=== PATIENT | female | born 1950 | race Caucasian/White ===

== ENCOUNTER 2017-05-16 16:13 | Inpatient (IN) | payer OTHER ==
[~2017-05-16] VITALS: Ht 170.2 cm; Wt 72.8 kg
[~2017-05-16 16:13] MED LIST: ADVAIR 250/501 DISK IH; ADVAIR HFA120 INHALA IH; ALBUTEROL2.5 MG/3 M IH; ALEVE220 MG PO; AMBIEN; AZITHROMYCIN250 MG1 PO; Advair 500/50 Diskus IH; Centrum Silver,Certa PO; DOXYCYCLINE HY100 MG PO; DUONEB 2.5-0.5 M3 ML IH; FOSAMAX70 MG PO; LEXAPRO20 MG PO; Levaquin PO; Lexapro PO; MUCINEX600 MG PO; ONE DAILY GUM200 MCG PO; OXYCODONE HCL10 MG PO; PREDNISONE10 MG PO; PREDNISONE50 MG PO; PROVENTIL,2.5 MG/0.5 PO; PROVENTIL,2.5 MG/3 M IH; PROVENTIL17 GM IH; Proventil,Ventolin H IH; SPIRIVA1 INHALATI IH; SYMBICORT60 INHALAT IH; Symbicort 80-4.5 mcg IH; Vitamin D PO; Xanax PO; predniSONE PO
[2017-05-16 16:53] LABS: BASOPHIL COUNT 0.1 K/uL (0-0.1); EOSINOPHIL (%) 3.8 % (0-5); EOSINOPHIL COUNT 0.3 K/uL (0-0.3); HEMATOCRIT 36.9 % (36.0-46.0); IMMATURE GRANULOCYTE (%) 0.3 % (0.0-0.7); INSTRUMENT ABS NEUTROPHIL CT 4.5 K/uL; LYMPHOCYTE COUNT 2.7 K/uL (1.0-2.8); MCH 28.5 PG (29.0-34.0); MCV 89.1 FL (83-99); MEAN PLAT.VOLUME 8.9 uM^3 (9.5-12.4); MONOCYTE (%) 5.5 % (3-12); MONOCYTE COUNT 0.4 K/uL (0-0.8); NEUTROPHIL (%) 56.1 % (45-76); NEUTROPHIL COUNT 4.5 K/uL (1.8-6.4); PLATELET COUNT 146 K/uL (156-360); RBC DIS.WIDTH-CV 13.7 % (11.8-14.6); RBC DIS.WIDTH-SD 44.8 % (39-53); RED BLOOD COUNT 4.14 M/uL (3.80-5.20)
[2017-05-16 17:01] LABS: PROTHROMBIN TIME 10.9 SEC (10.2-12.9)
[2017-05-16 17:04] LABS: PTT 25.8 SEC (25-37)
[2017-05-16 17:06] LABS: CHLORIDE 103 mEq/L (99-109); POTASSIUM 4.4 mEq/L (3.7-5.4); SODIUM 138 mEq/L (136-147)
[2017-05-16 17:07] LABS: MAGNESIUM 1.9 mg/dL (1.3-2.7)
[2017-05-16 17:08] LABS: GLUCOSE 125 mg/dL (70-99)
[2017-05-16 17:10] LABS: ANION GAP 7 MEQ/L (2-14)
[2017-05-16 17:12] LABS: GFR ESTIMATE (CALCULATED) 59 mL/min/
[2017-05-16 17:13] LABS: UREA NITROGEN (BUN) 12 mg/dL (9-23)
[2017-05-16 17:15] LABS: TROP-I INTERPRETATION NEGATIVE; TROPONIN-I 0.03 ng/mL (0.0-0.30)
[2017-05-16] MEDS ORDERED: SYMBICORT60 INHALAT IH (21:43)
[2017-05-16] MEDS ORDERED: TYLENOL EXTRA500 MG PO (21:44)
[2017-05-16 22:59] LABS: MAGNESIUM 1.7 mg/dL (1.3-2.7)
[2017-05-16 23:02] VITALS: BP 119/66
[2017-05-17 04:50] VITALS: BP 111/57
[2017-05-17 05:56] LABS: HEMATOCRIT 33.5 % (36.0-46.0); MCH 28.3 PG (29.0-34.0); MCHC 31.6 G/DL (30.0-36.0); MCV 89.6 FL (83-99); MEAN PLAT.VOLUME 9.8 uM^3 (9.5-12.4); PLATELET COUNT 150 K/uL (156-360); RBC DIS.WIDTH-CV 13.7 % (11.8-14.6); RBC DIS.WIDTH-SD 45.1 % (39-53); RED BLOOD COUNT 3.74 M/uL (3.80-5.20); WHITE BLOOD COUNT 6.2 K/uL (4.1-10.2)
[2017-05-17 06:13] LABS: ALKALINE PHOSPHATASE 61 IU/L (3-129); ANION GAP 6 MEQ/L (2-14); CHLORIDE 105 MEQ/L (99-109); GFR ESTIMATE (CALCULATED) > 59 mL/min/; GLUCOSE 169 mg/dL (70-99); POTASSIUM 4.2 MEQ/L (3.7-5.4); SAMPLE HEMOLYSIS CHECK 0; SAMPLE ICTERIC CHECK 0; SAMPLE LIPEMIA CHECK 0; SODIUM 139 MEQ/L (136-147); TOTAL BILIRUBIN 0.3 MG/DL (0.0-1.0); UREA NITROGEN (BUN) 12 mg/dL (9-23)
[2017-05-17 08:24] VITALS: BP 112/57
[2017-05-17 11:41] VITALS: BP 140/68
[2017-05-17 21:12] VITALS: BP 129/60
[2017-05-17 23:46] VITALS: BP 115/69
[2017-05-18 04:25] VITALS: BP 105/54
[2017-05-18 05:50] LABS: EOSINOPHIL (%) 0 % (0-5); HEMATOCRIT 32.2 % (36.0-46.0); IMMATURE GRANULOCYTE (%) 0.7 % (0.0-0.7); IMMATURE GRANULOCYTE COUNT 0.1 K/uL; INSTRUMENT ABS NEUTROPHIL CT 12.7 K/uL; LYMPHOCYTE COUNT 0.7 K/uL (1.0-2.8); MCH 28.9 PG (29.0-34.0); MCHC 32.6 G/DL (30.0-36.0); MCV 88.7 FL (83-99); MEAN PLAT.VOLUME 9.9 uM^3 (9.5-12.4); MONOCYTE (%) 2.4 % (3-12); MONOCYTE COUNT 0.3 K/uL (0-0.8); NEUTROPHIL COUNT 12.7 K/uL (1.8-6.4); PLATELET COUNT 153 K/uL (156-360); RBC DIS.WIDTH-CV 13.8 % (11.8-14.6); RED BLOOD COUNT 3.63 M/uL (3.80-5.20); WHITE BLOOD COUNT 13.8 K/uL (4.1-10.2)
[2017-05-18 06:09] LABS: ANION GAP 7 MEQ/L (2-14); CHLORIDE 106 MEQ/L (99-109); GFR ESTIMATE (CALCULATED) > 59 mL/min/; GLUCOSE 156 mg/dL (70-99); POTASSIUM 4.5 MEQ/L (3.7-5.4); SAMPLE HEMOLYSIS CHECK 0; SAMPLE ICTERIC CHECK 0; SAMPLE LIPEMIA CHECK 0; SODIUM 140 MEQ/L (136-147); UREA NITROGEN (BUN) 14 mg/dL (9-23)
[2017-05-18 07:34] VITALS: BP 125/58
[2017-05-18 11:39] VITALS: BP 153/69
[2017-05-18 16:23] VITALS: BP 138/63
[2017-05-18 19:30] VITALS: BP 157/74
[2017-05-18 23:43] VITALS: BP 173/83
[2017-05-19 00:15] VITALS: BP 160/80
[2017-05-19 04:34] VITALS: BP 145/70
[2017-05-19 07:48] VITALS: BP 138/71
[2017-05-19] MEDS ORDERED: ALBUTEROL2.5 MG/3 M IH (09:55)
[2017-05-19] MEDS ORDERED: PREDNISONE10 MG PO (09:55)
== END 2017-05-19 12:22 | disposition home or self-care (01) | DRG 191 ==
LOC: EME → EDBD 16:13 → EDOF 22:04 → 5WEST 22:04 → ENRESERV 22:07 → 5WEST 22:48 → CANRESERV 05-17 09:27 → ENRESERV 05-17 09:27 → 5WEST 05-19 12:22
PROVIDERS: Emergency Medicine; Internal Medicine
DX: J44.1 Chronic obstructive pulmonary disease with (acute) exacerbation (principal); T17.890A Other foreign object in other parts of respiratory tract causing asphyxiation, initial encounter; C85.90 Non-Hodgkin lymphoma, unspecified, unspecified site; J96.10 Chronic respiratory failure, unspecified whether with hypoxia or hypercapnia; J90 Pleural effusion, not elsewhere classified; F33.9 Major depressive disorder, recurrent, unspecified; K21.9 Gastro-esophageal reflux disease without esophagitis; I27.2 Other secondary pulmonary hypertension; J98.4 Other disorders of lung; G43.909 Migraine, unspecified, not intractable, without status migrainosus; F41.9 Anxiety disorder, unspecified; X58.XXXA Exposure to other specified factors, initial encounter; Z99.81 Dependence on supplemental oxygen; Z90.49 Acquired absence of other specified parts of digestive tract; Z88.5 Allergy status to narcotic agent; Z88.2 Allergy status to sulfonamides; Z87.891 Personal history of nicotine dependence; Z79.51 Long term (current) use of inhaled steroids; Z80.3 Family history of malignant neoplasm of breast; Z80.0 Family history of malignant neoplasm of digestive organs; Y92.9 Unspecified place or not applicable
CPT/HCPCS: 71010; 71275; 80048; 80053; 83735; 84100; 84484; 85025; 85027; 85610; 85730; 90686; 93005; 94640; 94640 76; 94644; 94799; 99202; 99281; 99285; G0378; J1100; J1644; J2060; J2405; J2930; J3010; J7030; J7644

== ENCOUNTER 2017-07-15 00:47 | Inpatient (IN) | payer OTHER ==
[~2017-07-15] VITALS: Ht 167.6 cm; Wt 70.9 kg
[~2017-07-15 00:47] MED LIST changes: +OXYCODONE HCL15 MG PO; +TYLENOL EXTRA500 MG PO
[2017-07-15 01:21] LABS: HEMATOCRIT 33.1 % (36.0-46.0); MCH 28.6 PG (29.0-34.0); MCHC 33.2 G/DL (30.0-36.0); MCV 86.2 FL (83-99); MEAN PLAT.VOLUME 8.5 uM^3 (9.5-12.4); PLATELET COUNT 162 K/uL (156-360); RBC DIS.WIDTH-CV 13.9 % (11.8-14.6); RBC DIS.WIDTH-SD 43.9 % (39-53); RED BLOOD COUNT 3.84 M/uL (3.80-5.20); WHITE BLOOD COUNT 9.4 K/uL (4.1-10.2)
[2017-07-15 01:34] LABS: CHLORIDE 99 mEq/L (99-109); POTASSIUM 3.7 mEq/L (3.7-5.4); SODIUM 130 mEq/L (136-147)
[2017-07-15 01:35] LABS: GLUCOSE 113 mg/dL (70-99)
[2017-07-15 01:39] LABS: ANION GAP 11 MEQ/L (2-14); GFR ESTIMATE (CALCULATED) 48 mL/min/
[2017-07-15 01:40] LABS: UREA NITROGEN (BUN) 15 mg/dL (9-23)
[2017-07-15 02:00] LABS: TROP-I INTERPRETATION NEGATIVE; TROPONIN-I < 0.01 ng/mL (0.0-0.30)
[2017-07-15 04:56] VITALS: BP 126/77
[2017-07-15 08:00] VITALS: BP 109/60
[2017-07-15] MEDS ORDERED: ALBUTEROL2.5 MG/3 M IH (11:52)
[2017-07-15 12:16] VITALS: BP 111/65
[2017-07-15 16:01] VITALS: BP 111/57
[2017-07-15 16:16] LABS: POINT-OF-CARE METER ID UU14314084
[2017-07-15 19:40] VITALS: BP 114/61
[2017-07-15 22:01] LABS: POINT-OF-CARE METER ID UU14314084
[2017-07-15 23:47] VITALS: BP 120/57
[2017-07-16 04:02] VITALS: BP 113/56
[2017-07-16 06:16] LABS: HEMATOCRIT 29.7 % (36.0-46.0); MCH 28.7 PG (29.0-34.0); MCHC 33.3 G/DL (30.0-36.0); MCV 86.1 FL (83-99); PLATELET COUNT 183 K/uL (156-360); RBC DIS.WIDTH-CV 14.3 % (11.8-14.6); RBC DIS.WIDTH-SD 45.1 % (39-53); RED BLOOD COUNT 3.45 M/uL (3.80-5.20); WHITE BLOOD COUNT 18.8 K/uL (4.1-10.2)
[2017-07-16 06:33] LABS: ANION GAP 6 MEQ/L (2-14); CHLORIDE 107 MEQ/L (99-109); GLUCOSE 156 mg/dL (70-99); SAMPLE HEMOLYSIS CHECK 0; SAMPLE ICTERIC CHECK 0; SAMPLE LIPEMIA CHECK 0; UREA NITROGEN (BUN) 13 mg/dL (9-23)
[2017-07-16 06:35] LABS: GFR ESTIMATE (CALCULATED) > 59 mL/min/; POTASSIUM 4.5 MEQ/L (3.7-5.4); SODIUM 138 MEQ/L (136-147)
[2017-07-16 07:25] VITALS: BP 115/63
[2017-07-16 12:13] LABS: POINT-OF-CARE METER ID UU14314084
[2017-07-16 15:35] VITALS: BP 138/75
[2017-07-16 18:26] LABS: POINT-OF-CARE METER ID UU14162508
[2017-07-16 20:00] VITALS: BP 120/75
[2017-07-17 00:35] VITALS: BP 148/85
[2017-07-17 07:18] VITALS: BP 116/56
[2017-07-17 15:17] VITALS: BP 144/78
[2017-07-18 00:27] VITALS: BP 145/76
[2017-07-18 08:04] VITALS: BP 126/62
[2017-07-18 16:59] VITALS: BP 144/75
[2017-07-18 23:25] VITALS: BP 135/79
[2017-07-19 08:30] VITALS: BP 130/76
[2017-07-19 16:27] VITALS: BP 137/77
[2017-07-19 23:15] VITALS: BP 156/78
[2017-07-20 06:37] LABS: HEMATOCRIT 33.3 % (36.0-46.0); MCH 28.3 PG (29.0-34.0); MCHC 32.4 G/DL (30.0-36.0); MCV 87.4 FL (83-99); MEAN PLAT.VOLUME 8.4 uM^3 (9.5-12.4); PLATELET COUNT 186 K/uL (156-360); RBC DIS.WIDTH-CV 13.9 % (11.8-14.6); RBC DIS.WIDTH-SD 44.6 % (39-53); RED BLOOD COUNT 3.81 M/uL (3.80-5.20); WHITE BLOOD COUNT 9.5 K/uL (4.1-10.2)
[2017-07-20 07:08] LABS: ANION GAP 6 MEQ/L (2-14); CHLORIDE 102 MEQ/L (99-109); GFR ESTIMATE (CALCULATED) > 59 mL/min/; GLUCOSE 125 mg/dL (70-99); POTASSIUM 4.5 MEQ/L (3.7-5.4); SAMPLE HEMOLYSIS CHECK 0; SAMPLE ICTERIC CHECK 0; SAMPLE LIPEMIA CHECK 0; SODIUM 140 MEQ/L (136-147); UREA NITROGEN (BUN) 16 mg/dL (9-23)
[2017-07-20 07:30] VITALS: BP 122/64
[2017-07-20] MEDS ORDERED: PREDNISONE20 MG PO (08:32)
[2017-07-20] MEDS ORDERED: Robitussin DM PO (08:32)
== END 2017-07-20 11:30 | disposition home or self-care (01) | DRG 191 ==
LOC: EME → EDBD 00:47 → EME 00:47 → EDOF 03:23 → 2EAST 03:23 → ENRESERV 03:24 → 2EAST 04:30
PROVIDERS: Hospitalist; Internal Medicine
DX: J44.1 Chronic obstructive pulmonary disease with (acute) exacerbation (principal); J20.9 Acute bronchitis, unspecified; I10 Essential (primary) hypertension; J44.0 Chronic obstructive pulmonary disease with (acute) lower respiratory infection; F32.9 Major depressive disorder, single episode, unspecified; J96.10 Chronic respiratory failure, unspecified whether with hypoxia or hypercapnia; D50.0 Iron deficiency anemia secondary to blood loss (chronic); E87.1 Hypo-osmolality and hyponatremia; R73.02 Impaired glucose tolerance (oral); I89.0 Lymphedema, not elsewhere classified; K21.9 Gastro-esophageal reflux disease without esophagitis; Z87.891 Personal history of nicotine dependence; Z85.72 Personal history of non-Hodgkin lymphomas; Z90.49 Acquired absence of other specified parts of digestive tract; Z99.81 Dependence on supplemental oxygen; Z79.51 Long term (current) use of inhaled steroids; Z79.899 Other long term (current) drug therapy
CPT/HCPCS: 71020; 80048; 82948; 84484; 85027; 93005; 94640; 94640 76; 94760; 94799; 99202; 99281; 99285; J1100; J1650; J1815; J2405; J2920; J2930; J7040; J7512; J7644

== ENCOUNTER 2017-07-26 21:25 | Inpatient (IN) | payer OTHER ==
[~2017-07-26] VITALS: Ht 170.2 cm; Wt 76.5 kg
[~2017-07-26 21:25] MED LIST changes: +PREDNISONE20 MG PO; +Robitussin DM PO
[2017-07-26] MEDS ORDERED: SYMBICORT60 INHALAT IH (21:48)
[2017-07-26] MEDS ORDERED: LEXAPRO20 MG PO (21:48)
[2017-07-26] MEDS ORDERED: ROXICODONE15 MG PO (21:48)
[2017-07-26] MEDS ORDERED: TYLENOL EXTRA500 MG PO (21:49)
[2017-07-26] MEDS ORDERED: ROBITUSSIN100 MG/5 M PO (21:49)
[2017-07-26] MEDS ORDERED: PROVENTIL,2.5 MG/3 M IH (21:49)
[2017-07-26] MEDS ORDERED: DELTASONE20 M1 PO (21:50)
[2017-07-26 21:57] LABS: HEMATOCRIT 34.6 % (36.0-46.0); MCH 29.1 PG (29.0-34.0); MCHC 32.1 G/DL (30.0-36.0); MCV 90.8 FL (83-99); MEAN PLAT.VOLUME 8.2 uM^3 (9.5-12.4); PLATELET COUNT 189 K/uL (156-360); RBC DIS.WIDTH-CV 14.6 % (11.8-14.6); RBC DIS.WIDTH-SD 48.9 % (39-53); RED BLOOD COUNT 3.81 M/uL (3.80-5.20); WHITE BLOOD COUNT 18.8 K/uL (4.1-10.2)
[2017-07-26 22:06] LABS: CHLORIDE 105 mEq/L (99-109); POTASSIUM 4.9 mEq/L (3.7-5.4); SODIUM 139 mEq/L (136-147)
[2017-07-26 22:08] LABS: GLUCOSE 179 mg/dL (70-99)
[2017-07-26 22:09] LABS: ANION GAP 13 MEQ/L (2-14)
[2017-07-26 22:12] LABS: GFR ESTIMATE (CALCULATED) 59 mL/min/
[2017-07-26 22:13] LABS: UREA NITROGEN (BUN) 22 mg/dL (9-23)
[2017-07-26 22:14] LABS: BASE EXCESS -0.5 mEq/L (-3 to +3); BICARBONATE 25.8 mEq/L (22-26); CARBOXY HGB 4.8 % (0-5); METHEMOGLOBIN 0.1 % (0-1.5); PCO2 49 mm Hg (35-45); PO2 157 mm Hg (80-100); pH 7.33 (7.35-7.45)
[2017-07-26 22:15] LABS: COMMENTS - BLOOD GASES C+; DEVICE VENT; FI02 40 %; MODE NIV; PEEP 5 CM/H20; PRES. SUPPORT 10 CM/H2O; SITE RR; TOTAL RESP RATE 24 resp/min
[2017-07-26 22:20] LABS: TROP-I INTERPRETATION NEGATIVE; TROPONIN-I 0.02 ng/mL (0.0-0.30)
[2017-07-27 03:55] VITALS: BP 151/79
[2017-07-27 06:06] LABS: HEMATOCRIT 33.3 % (36.0-46.0); MCH 29.2 PG (29.0-34.0); MCHC 31.8 G/DL (30.0-36.0); MCV 91.7 FL (83-99); MEAN PLAT.VOLUME 8.6 uM^3 (9.5-12.4); PLATELET COUNT 169 K/uL (156-360); RBC DIS.WIDTH-CV 14.6 % (11.8-14.6); RBC DIS.WIDTH-SD 49.4 % (39-53); RED BLOOD COUNT 3.63 M/uL (3.80-5.20); WHITE BLOOD COUNT 14.6 K/uL (4.1-10.2)
[2017-07-27 06:29] LABS: ANION GAP 4 MEQ/L (2-14); CHLORIDE 105 MEQ/L (99-109); GFR ESTIMATE (CALCULATED) > 59 mL/min/; GLUCOSE 141 mg/dL (70-99); POTASSIUM 5.1 MEQ/L (3.7-5.4); SAMPLE HEMOLYSIS CHECK 0; SAMPLE ICTERIC CHECK 0; SAMPLE LIPEMIA CHECK 0; SODIUM 139 MEQ/L (136-147); UREA NITROGEN (BUN) 19 mg/dL (9-23)
[2017-07-27 06:45] VITALS: BP 168/85
[2017-07-27 11:36] VITALS: BP 158/72
[2017-07-27 15:00] VITALS: BP 133/82
[2017-07-27 15:29] LABS: ADD MIUA? NO; BILIRUBIN NEGATIVE; BLOOD NEGATIVE; COLOR STRAW ((YELLOW)); GLUCOSE (STRIP) NEGATIVE; KETONES NEGATIVE; LEUKOCYTES NEGATIVE; NITRITE NEGATIVE; PROTEIN (STRIP) NEGATIVE; SPECIFIC GRAVITY 1.014 (1.000-1.030); UROBILINOGEN 0.2 MG/DL (0.2-1.0)
[2017-07-27 19:25] VITALS: BP 147/84
[2017-07-27 23:07] VITALS: BP 126/67
[2017-07-28 03:30] VITALS: BP 126/67
[2017-07-28 07:25] VITALS: BP 144/76
[2017-07-28 09:01] LABS: HEMATOCRIT 36.4 % (36.0-46.0); MCH 28.6 PG (29.0-34.0); MCHC 31.9 G/DL (30.0-36.0); MCV 89.7 FL (83-99); MEAN PLAT.VOLUME 8.4 uM^3 (9.5-12.4); PLATELET COUNT 202 K/uL (156-360); RBC DIS.WIDTH-CV 14.5 % (11.8-14.6); RBC DIS.WIDTH-SD 47.8 % (39-53); RED BLOOD COUNT 4.06 M/uL (3.80-5.20); WHITE BLOOD COUNT 17.5 K/uL (4.1-10.2)
[2017-07-28 09:35] LABS: ANION GAP 7 MEQ/L (2-14); CHLORIDE 104 MEQ/L (99-109); GFR ESTIMATE (CALCULATED) > 59 mL/min/; GLUCOSE 112 mg/dL (70-99); SAMPLE HEMOLYSIS CHECK 0; SAMPLE ICTERIC CHECK 0; SAMPLE LIPEMIA CHECK 0; SODIUM 141 MEQ/L (136-147); UREA NITROGEN (BUN) 23 mg/dL (9-23)
[2017-07-28 09:36] LABS: POTASSIUM 3.9 MEQ/L (3.7-5.4)
[2017-07-28 11:49] VITALS: BP 165/79
[2017-07-28 16:04] VITALS: BP 156/81
[2017-07-28 19:38] VITALS: BP 143/75
[2017-07-28 23:30] VITALS: BP 134/75
[2017-07-29 07:46] VITALS: BP 166/96
[2017-07-29 10:52] LABS: HEMATOCRIT 37.1 % (36.0-46.0); MCH 28.8 PG (29.0-34.0); MCHC 31.8 G/DL (30.0-36.0); MCV 90.5 FL (83-99); MEAN PLAT.VOLUME 8.3 uM^3 (9.5-12.4); PLATELET COUNT 188 K/uL (156-360); RBC DIS.WIDTH-CV 14.5 % (11.8-14.6); WHITE BLOOD COUNT 16.4 K/uL (4.1-10.2)
[2017-07-29 16:14] VITALS: BP 149/81
[2017-07-29 22:45] VITALS: BP 141/72
[2017-07-30 06:40] VITALS: BP 156/75
[2017-07-30 09:43] LABS: HEMATOCRIT 37.2 % (36.0-46.0); MCH 28.4 PG (29.0-34.0); MCHC 31.5 G/DL (30.0-36.0); MCV 90.3 FL (83-99); MEAN PLAT.VOLUME 8.6 uM^3 (9.5-12.4); PLATELET COUNT 183 K/uL (156-360); RBC DIS.WIDTH-CV 14.5 % (11.8-14.6); RBC DIS.WIDTH-SD 47.8 % (39-53); RED BLOOD COUNT 4.12 M/uL (3.80-5.20); WHITE BLOOD COUNT 16.8 K/uL (4.1-10.2)
[2017-07-30 15:35] VITALS: BP 153/83
[2017-07-31] VITALS: BP 132/79
[2017-07-31 06:55] VITALS: BP 174/82
[2017-07-31 09:37] LABS: HEMATOCRIT 34.3 % (36.0-46.0); MCH 29.2 PG (29.0-34.0); MCHC 31.8 G/DL (30.0-36.0); MEAN PLAT.VOLUME 8.5 uM^3 (9.5-12.4); PLATELET COUNT 138 K/uL (156-360); RBC DIS.WIDTH-CV 14.7 % (11.8-14.6); RBC DIS.WIDTH-SD 49.2 % (39-53); RED BLOOD COUNT 3.73 M/uL (3.80-5.20); WHITE BLOOD COUNT 13.7 K/uL (4.1-10.2)
[2017-07-31 09:58] LABS: ANION GAP 7 MEQ/L (2-14); CHLORIDE 103 MEQ/L (99-109); GFR ESTIMATE (CALCULATED) > 59 mL/min/; GLUCOSE 106 mg/dL (70-99); POTASSIUM 4.2 MEQ/L (3.7-5.4); SAMPLE HEMOLYSIS CHECK 0; SAMPLE ICTERIC CHECK 0; SAMPLE LIPEMIA CHECK 0; SODIUM 141 MEQ/L (136-147); UREA NITROGEN (BUN) 18 mg/dL (9-23)
[2017-07-31 11:18] LABS: ALKALINE PHOSPHATASE 55 IU/L (3-129); DIRECT BILIRUBIN 0.1 mg/dL (0.0-0.3); TOTAL BILIRUBIN 0.3 MG/DL (0.0-1.0)
[2017-07-31 12:19] LABS: LIPASE 16 U/L (1.0-51.0)
[2017-07-31 15:14] VITALS: BP 188/91
[2017-07-31 23:30] VITALS: BP 154/77
[2017-08-01 05:48] LABS: EOSINOPHIL (%) 0 % (0-5); HEMATOCRIT 31.6 % (36.0-46.0); IMMATURE GRANULOCYTE (%) 0.9 % (0.0-0.7); IMMATURE GRANULOCYTE COUNT 0.1 K/uL; INSTRUMENT ABS NEUTROPHIL CT 12.2 K/uL; LYMPHOCYTE COUNT 0.5 K/uL (1.0-2.8); MCH 29.5 PG (29.0-34.0); MCHC 32.3 G/DL (30.0-36.0); MCV 91.3 FL (83-99); MEAN PLAT.VOLUME 9.2 uM^3 (9.5-12.4); MONOCYTE (%) 3.2 % (3-12); MONOCYTE COUNT 0.4 K/uL (0-0.8); NEUTROPHIL (%) 91.9 % (45-76); NEUTROPHIL COUNT 12.2 K/uL (1.8-6.4); PLATELET COUNT 119 K/uL (156-360); RBC DIS.WIDTH-CV 14.7 % (11.8-14.6); RBC DIS.WIDTH-SD 49.3 % (39-53); RED BLOOD COUNT 3.46 M/uL (3.80-5.20); WHITE BLOOD COUNT 13.2 K/uL (4.1-10.2)
[2017-08-01 07:17] VITALS: BP 171/83
[2017-08-01 14:44] LABS: TROP-I INTERPRETATION NEGATIVE; TROPONIN-I 0.02 ng/mL (0.0-0.30)
[2017-08-01 14:45] VITALS: BP 172/84
[2017-08-01 22:34] VITALS: BP 169/88
[2017-08-02 00:33] VITALS: BP 157/76
[2017-08-02 04:05] VITALS: BP 155/76
[2017-08-02 06:31] LABS: MCH 29.8 PG (29.0-34.0); MCHC 32.6 G/DL (30.0-36.0); MCV 91.4 FL (83-99); MEAN PLAT.VOLUME 9.2 uM^3 (9.5-12.4); PLATELET COUNT 136 K/uL (156-360); RBC DIS.WIDTH-CV 14.8 % (11.8-14.6); RBC DIS.WIDTH-SD 49.3 % (39-53); RED BLOOD COUNT 3.72 M/uL (3.80-5.20); WHITE BLOOD COUNT 14.2 K/uL (4.1-10.2)
[2017-08-02 07:31] VITALS: BP 168/81
[2017-08-02 11:54] VITALS: BP 170/85
[2017-08-02 15:40] LABS: POINT-OF-CARE METER ID UU13113774
[2017-08-02 20:37] VITALS: BP 172/79
[2017-08-02 23:41] VITALS: BP 169/78
[2017-08-03 07:54] VITALS: BP 170/86
[2017-08-03 11:39] VITALS: BP 172/84
[2017-08-03 15:50] VITALS: BP 177/87
[2017-08-03 19:32] VITALS: BP 154/83
[2017-08-03 22:20] VITALS: BP 140/65
[2017-08-04 03:40] VITALS: BP 144/69
[2017-08-04 05:49] LABS: HEMATOCRIT 34.7 % (36.0-46.0); MCH 28.8 PG (29.0-34.0); MCHC 31.4 G/DL (30.0-36.0); MCV 91.8 FL (83-99); MEAN PLAT.VOLUME 8.8 uM^3 (9.5-12.4); PLATELET COUNT 131 K/uL (156-360); RBC DIS.WIDTH-SD 50.3 % (39-53); RED BLOOD COUNT 3.78 M/uL (3.80-5.20); WHITE BLOOD COUNT 11.7 K/uL (4.1-10.2)
[2017-08-04 06:31] LABS: ANION GAP 6 MEQ/L (2-14); CHLORIDE 102 MEQ/L (99-109); GFR ESTIMATE (CALCULATED) 59 mL/min/; GLUCOSE 112 mg/dL (70-99); POTASSIUM 4.4 MEQ/L (3.7-5.4); SAMPLE HEMOLYSIS CHECK 0; SAMPLE ICTERIC CHECK 0; SAMPLE LIPEMIA CHECK 0; SODIUM 139 MEQ/L (136-147); UREA NITROGEN (BUN) 22 mg/dL (9-23)
[2017-08-04 07:39] VITALS: BP 156/76
[2017-08-04 11:35] VITALS: BP 162/88
[2017-08-04 16:35] VITALS: BP 169/79
[2017-08-04 20:05] VITALS: BP 140/81
[2017-08-05 06:16] LABS: HEMATOCRIT 32.5 % (36.0-46.0); MCHC 31.4 G/DL (30.0-36.0); MCV 92.3 FL (83-99); MEAN PLAT.VOLUME 8.9 uM^3 (9.5-12.4); PLATELET COUNT 124 K/uL (156-360); RBC DIS.WIDTH-CV 15.1 % (11.8-14.6); RBC DIS.WIDTH-SD 51.4 % (39-53); RED BLOOD COUNT 3.52 M/uL (3.80-5.20); WHITE BLOOD COUNT 10.8 K/uL (4.1-10.2)
[2017-08-05 07:10] VITALS: BP 167/87
[2017-08-05 12:05] LABS: TROP-I INTERPRETATION NEGATIVE; TROPONIN-I 0.03 ng/mL (0.0-0.30)
[2017-08-05 16:16] VITALS: BP 143/71
[2017-08-06 00:29] VITALS: BP 126/62
[2017-08-06 08:06] VITALS: BP 148/78
[2017-08-06] MEDS ORDERED: FLONASE16 G1 BOTH NARES (11:40)
[2017-08-06] MEDS ORDERED: METOPROLOL SUCC25 MG PO (11:40)
[2017-08-06] MEDS ORDERED: SPIRIVA1 INHALATI IH (11:40)
[2017-08-06] MEDS ORDERED: PREDNISONE10 MG PO ×2 (11:40→11:55)
[2017-08-06] MEDS ORDERED: SYMBICORT60 INHALAT IH (11:40)
[2017-08-06] MEDS ORDERED: AMLODIPINE BESYL5 MG PO (11:40)
[2017-08-06] MEDS ORDERED: LEXAPRO20 MG PO (11:40)
[2017-08-06] MEDS ORDERED: PROTONIX40 MG PO (11:40)
[2017-08-06] MEDS ORDERED: FLUCONAZOLE100 MG PO (11:40)
[2017-08-06] MEDS ORDERED: DOCUSATE SODIU100 MG PO (11:40)
[2017-08-06] MEDS ORDERED: MYCOSTATIN 100,60 ML PO (11:40)
[2017-08-06] MEDS ORDERED: BENZONATATE100 MG PO (11:40)
[2017-08-06] MEDS ORDERED: XOPENEX1.25 MG/3 IH (11:40)
[2017-08-06] MEDS ORDERED: ROXICODONE15 MG PO (11:40)
[2017-08-06] MEDS ORDERED: AZITHROMYCIN500 M1 PO (11:40)
[2017-08-06] MEDS ORDERED: DUONEB 2.5-0.5 M3 ML AEROSOL (16:05)
[2017-08-06] MEDS ORDERED: PROVENTIL,2.5 MG/3 M IH (16:05)
== END 2017-08-06 14:12 | disposition home health service (06) | DRG 190 ==
LOC: EME → EDBD 21:25 → EME 21:25 → 5EAST 07-27 01:52 → EDOF 07-27 01:52 → ENRESERV 07-27 01:53 → 5EAST 07-27 03:36
PROVIDERS: Emergency Medicine; Hospitalist; Internal Medicine; Internal Medicine Gastroenterology
PROC: 5A09357 Assistance with Respiratory Ventilation, Less than 24 Consecutive Hours, Continuous Positive Airway Pressure (ICD-10-PCS; principal; 2017-07-26)
PROC: 0DB68ZX Excision of Stomach, Via Natural or Artificial Opening Endoscopic, Diagnostic (ICD-10-PCS; 2017-08-02)
PROC: 0DJ08ZZ Inspection of Upper Intestinal Tract, Via Natural or Artificial Opening Endoscopic (ICD-10-PCS; 2017-08-02)
PROC: 0DB98ZX Excision of Duodenum, Via Natural or Artificial Opening Endoscopic, Diagnostic (ICD-10-PCS; 2017-08-02)
DX: J44.1 Chronic obstructive pulmonary disease with (acute) exacerbation (principal); J96.21 Acute and chronic respiratory failure with hypoxia; Z99.81 Dependence on supplemental oxygen; C85.93 Non-Hodgkin lymphoma, unspecified, intra-abdominal lymph nodes; K31.84 Gastroparesis; B37.81 Candidal esophagitis; B37.0 Candidal stomatitis; K26.9 Duodenal ulcer, unspecified as acute or chronic, without hemorrhage or perforation; K25.9 Gastric ulcer, unspecified as acute or chronic, without hemorrhage or perforation; K29.70 Gastritis, unspecified, without bleeding; K22.10 Ulcer of esophagus without bleeding; K21.0 Gastro-esophageal reflux disease with esophagitis; J20.9 Acute bronchitis, unspecified; J44.0 Chronic obstructive pulmonary disease with (acute) lower respiratory infection; J01.00 Acute maxillary sinusitis, unspecified; D64.9 Anemia, unspecified; F32.9 Major depressive disorder, single episode, unspecified; F41.9 Anxiety disorder, unspecified; G43.909 Migraine, unspecified, not intractable, without status migrainosus; R00.0 Tachycardia, unspecified; I10 Essential (primary) hypertension; E78.5 Hyperlipidemia, unspecified; G89.29 Other chronic pain; K59.00 Constipation, unspecified; Z87.891 Personal history of nicotine dependence; Z79.1 Long term (current) use of non-steroidal anti-inflammatories (NSAID); Z92.21 Personal history of antineoplastic chemotherapy; Z80.3 Family history of malignant neoplasm of breast; Z80.0 Family history of malignant neoplasm of digestive organs
CPT/HCPCS: 36600; 70220; 71010; 71020; 71275; 74177; 76700; 80048; 80076; 81003; 82803; 82948; 83690; 84484; 85025; 85027; 87040; 87070; 87205; 88305; 88342 TC; 93005; 93971; 94002; 94640; 94640 76; 94760; 94799; 97530 GO; 97530 GP; 99202; 99281; 99285; C9113; J1100; J1644; J2060; J2405; J2930; J7512; J7644

== ENCOUNTER 2018-01-18 16:54 | Inpatient (IN) | payer OTHER ==
[~2018-01-18] VITALS: Ht 167.6 cm; Wt 73.0 kg
[~2018-01-18 16:54] MED LIST changes: +AMLODIPINE BESYL5 MG PO; +AZITHROMYCIN500 M1 PO; +BENZONATATE100 MG PO; +DELTASONE20 M1 PO; +DOCUSATE SODIU100 MG PO; +DUONEB 2.5-0.5 M3 ML AEROSOL; +FLONASE16 G1 BOTH NARES; +FLUCONAZOLE100 MG PO; +METOPROLOL SUCC25 MG PO; +MYCOSTATIN 100,60 ML PO; +PROTONIX40 MG PO; +ROBITUSSIN100 MG/5 M PO; +ROXICODONE15 MG PO; +XOPENEX1.25 MG/3 IH
[2018-01-18 17:47] LABS: BASOPHIL COUNT 0.1 K/uL (0-0.1); EOSINOPHIL (%) 6.6 % (0-5); EOSINOPHIL COUNT 0.8 K/uL (0-0.3); HEMATOCRIT 29.7 % (36.0-46.0); HEMOGLOBIN 9.6 G/DL (11.9-15.5); IMMATURE GRANULOCYTE (%) 0.6 % (0.0-0.7); LYMPHOCYTE (%) 18.2 % (15-42); LYMPHOCYTE COUNT 2.1 K/uL (1.0-2.8); MCH 26.9 PG (29.0-34.0); MCHC 32.3 G/DL (30.0-36.0); MCV 83.2 FL (83-99); MONOCYTE (%) 5.9 % (3-12); MONOCYTE COUNT 0.7 K/uL (0-0.8); NEUTROPHIL (%) 67.7 % (45-76); NEUTROPHIL COUNT 7.8 K/uL (1.8-6.4); PLATELET COUNT 317 K/uL (156-360); RBC DIS.WIDTH-CV 13.2 % (11.8-14.6); RBC DIS.WIDTH-SD 39.7 % (39-53); RED BLOOD COUNT 3.57 M/uL (3.80-5.20); WHITE BLOOD COUNT 11.5 K/uL (4.1-10.2)
[2018-01-18 17:53] LABS: INTER. NORMALIZED RATIO 1.1
[2018-01-18 17:55] LABS: AMYLASE 37 IU/L (1-118); CHLORIDE 106 mEq/L (99-109); POTASSIUM 4.3 mEq/L (3.7-5.4); SODIUM 138 mEq/L (136-147)
[2018-01-18 17:56] LABS: GLUCOSE 103 mg/dL (70-99); PTT 27.5 SEC (25-37)
[2018-01-18 18:00] LABS: CREATININE 0.9 mg/dL (0.6-1.3); GFR ESTIMATE (CALCULATED) > 59 mL/min/
[2018-01-18 18:01] LABS: UREA NITROGEN (BUN) 7 mg/dL (9-23)
[2018-01-18 18:03] LABS: LIPASE 3 U/L (1.0-51.0)
[2018-01-18 18:07] LABS: TROP-I INTERPRETATION NEGATIVE; TROPONIN-I < 0.01 ng/mL (0.0-0.30)
[2018-01-18] MEDS ORDERED: NORVASC5 MG PO (19:59)
[2018-01-18] MEDS ORDERED: LOPRESSOR25 MG PO (19:59)
[2018-01-18] MEDS ORDERED: DUONEB 2.5-0.5 M3 ML AEROSOL (19:59)
[2018-01-18] MEDS ORDERED: OXYCODONE HCL10 MG PO (20:00)
[2018-01-18 20:38] LABS: APPEARANCE CLEAR ((CLEAR)); BILIRUBIN NEGATIVE; BLOOD NEGATIVE; COLOR STRAW ((YELLOW)); GLUCOSE (STRIP) NEGATIVE; KETONES NEGATIVE; LEUKOCYTES NEGATIVE; NITRITE NEGATIVE; PROTEIN (STRIP) NEGATIVE; SPECIFIC GRAVITY 1.018 (1.000-1.030); UCUL ADDED? NO; UROBILINOGEN 0.2 MG/DL (0.2-1.0)
[2018-01-18 22:24] LABS: ALBUMIN 3.6 g/dL (3.2-4.8)
[2018-01-18 22:26] VITALS: BP 134/62
[2018-01-18 22:27] LABS: TOTAL PROTEIN 5.9 g/dL (6.4-8.3)
[2018-01-18 22:29] LABS: TOTAL BILIRUBIN 0.1 mg/dL (0.0-1.0)
[2018-01-18 22:30] LABS: ALKALINE PHOSPHATASE 85 IU/L (3-129)
[2018-01-18 22:32] LABS: AST (GOT) 11 IU/L (2-34); DIRECT BILIRUBIN 0.1 mg/dL (0.0-0.3)
[2018-01-18 22:33] LABS: ALT (GPT) 6 IU/L (3-49)
[2018-01-19 01:36] LABS: HDL CHOLESTEROL 35 MG/DL (Desirable>=50); LDL CHOLESTEROL 130 mg/dL (Desirable<100); NON-HDL CHOLESTEROL 156 mg/dL (Desirable<160); TOTAL CHOLESTEROL 191 mg/dL (Desirable<200); TRIGLYCERIDES 132 MG/DL (Normal: <150)
[2018-01-19 03:26] VITALS: BP 121/63
[2018-01-19 07:35] VITALS: BP 116/56
[2018-01-19 12:16] LABS: HEMOGLOBIN A1c (GLYCOHEMOGLOB) 6.3 % (Below 5.7)
[2018-01-19 12:44] VITALS: BP 110/59
[2018-01-19 16:21] VITALS: BP 109/59
[2018-01-19 19:35] VITALS: BP 107/57
[2018-01-19 23:49] VITALS: BP 145/73
[2018-01-20 03:56] VITALS: BP 130/72
[2018-01-20 07:45] VITALS: BP 120/56
[2018-01-20 12:00] VITALS: BP 120/65
[2018-01-20 15:35] VITALS: BP 124/69
[2018-01-20 19:56] VITALS: BP 115/58
[2018-01-21 00:36] VITALS: BP 130/59
[2018-01-21 04:00] VITALS: BP 117/67
[2018-01-21 07:42] VITALS: BP 122/67
[2018-01-21 11:09] VITALS: BP 125/63
[2018-01-21 15:30] VITALS: BP 114/64
[2018-01-21 19:51] VITALS: BP 148/70
[2018-01-22] VITALS: BP 117/60
[2018-01-22 04:00] VITALS: BP 120/67
[2018-01-22 08:00] VITALS: BP 129/64
[2018-01-22 11:07] VITALS: BP 130/74
[2018-01-22 16:00] VITALS: BP 138/78
[2018-01-22 20:04] VITALS: BP 134/66
[2018-01-23 00:47] VITALS: BP 141/72
[2018-01-23 04:00] VITALS: BP 122/73
[2018-01-23 06:10] LABS: HEMATOCRIT 29.4 % (36.0-46.0); HEMOGLOBIN 9.1 G/DL (11.9-15.5); MCH 25.7 PG (29.0-34.0); MCV 83.1 FL (83-99); PLATELET COUNT 274 K/uL (156-360); RBC DIS.WIDTH-CV 13.4 % (11.8-14.6); RBC DIS.WIDTH-SD 40.7 % (39-53); RED BLOOD COUNT 3.54 M/uL (3.80-5.20); WHITE BLOOD COUNT 7.4 K/uL (4.1-10.2)
[2018-01-23 06:23] LABS: CHLORIDE 105 MEQ/L (99-109); CREATININE 0.9 MG/DL (0.6-1.3); GFR ESTIMATE (CALCULATED) > 59 mL/min/; GLUCOSE 103 mg/dL (70-99); SODIUM 143 MEQ/L (136-147); UREA NITROGEN (BUN) 5 mg/dL (9-23)
[2018-01-23 07:31] VITALS: BP 136/78
[2018-01-23] MEDS ORDERED: ATORVASTATIN CA40 MG PO (09:24)
[2018-01-23] MEDS ORDERED: ASPIRIN EC325 MG PO (09:24)
[2018-01-23] MEDS ORDERED: AMOX TR-K CLV1 EAC4 PO (09:24)
[2018-01-23] MEDS ORDERED: OXYCODONE HCL5 MG PO (09:25)
[2018-01-23 11:31] VITALS: BP 135/76
== END 2018-01-23 13:15 | DRG 64 ==
LOC: EME 16:54 → EDOF 21:17 → 5SOUTH 21:17 → ENRESERV 21:18 → 5SOUTH 22:03
PROVIDERS: Emergency Medicine; Family Medicine; Hospitalist
DX: I63.9 Cerebral infarction, unspecified (principal); R29.810 Facial weakness; R47.81 Slurred speech; G81.94 Hemiplegia, unspecified affecting left nondominant side; J69.0 Pneumonitis due to inhalation of food and vomit; J44.1 Chronic obstructive pulmonary disease with (acute) exacerbation; C85.99 Non-Hodgkin lymphoma, unspecified, extranodal and solid organ sites; K21.9 Gastro-esophageal reflux disease without esophagitis; I11.0 Hypertensive heart disease with heart failure; I50.9 Heart failure, unspecified; G43.909 Migraine, unspecified, not intractable, without status migrainosus; F41.9 Anxiety disorder, unspecified; F32.9 Major depressive disorder, single episode, unspecified; R73.02 Impaired glucose tolerance (oral); R29.704 NIHSS score 4; D64.9 Anemia, unspecified; G89.29 Other chronic pain; R10.9 Unspecified abdominal pain; Z79.891 Long term (current) use of opiate analgesic; Z99.81 Dependence on supplemental oxygen; Z88.2 Allergy status to sulfonamides; Z87.891 Personal history of nicotine dependence; Z88.5 Allergy status to narcotic agent
CPT/HCPCS: 70450; 70496; 70498; 70551; 74176; 80048; 80061; 80076; 81003; 82150; 82948; 83036; 83690; 84484; 85025; 85027; 85610; 85730; 86850; 86870; 86900; 86901; 86905; 86920; 92507 GN; 92523 GN; 92526 GN; 92610 GN; 93005; 93306; 93971; 94640; 94640 76; 94760; 94799; 99202; 99281; 99285; J0295; J0456; J1644; J7050

== ENCOUNTER 2018-03-22 18:55 | Inpatient (IN) | payer OTHER ==
[~2018-03-22] VITALS: Ht 167.6 cm; Wt 70.9 kg
[~2018-03-22 18:55] MED LIST changes: +AMOX TR-K CLV1 EAC4 PO; +ASPIRIN EC325 MG PO; +ATORVASTATIN CA40 MG PO; +LOPRESSOR25 MG PO; +NORVASC5 MG PO; +OXYCODONE HCL5 MG PO
[2018-03-22 20:05] LABS: BASOPHIL (%) 0.7 % (0-1); BASOPHIL COUNT 0.1 K/uL (0-0.1); EOSINOPHIL (%) 4.8 % (0-5); EOSINOPHIL COUNT 0.5 K/uL (0-0.3); HEMATOCRIT 30.9 % (36.0-46.0); HEMOGLOBIN 9.8 G/DL (11.9-15.5); IMMATURE GRANULOCYTE (%) 0.4 % (0.0-0.7); LYMPHOCYTE (%) 11.9 % (15-42); LYMPHOCYTE COUNT 1.3 K/uL (1.0-2.8); MCH 27.8 PG (29.0-34.0); MCHC 31.7 G/DL (30.0-36.0); MCV 87.8 FL (83-99); MONOCYTE (%) 6.8 % (3-12); MONOCYTE COUNT 0.7 K/uL (0-0.8); NEUTROPHIL (%) 75.4 % (45-76); NEUTROPHIL COUNT 8.3 K/uL (1.8-6.4); PLATELET COUNT 175 K/uL (156-360); RBC DIS.WIDTH-CV 16.3 % (11.8-14.6); RBC DIS.WIDTH-SD 53.1 % (39-53); RED BLOOD COUNT 3.52 M/uL (3.80-5.20); WHITE BLOOD COUNT 10.9 K/uL (4.1-10.2)
[2018-03-22 20:13] LABS: CHLORIDE 107 mEq/L (99-109); POTASSIUM 4.3 mEq/L (3.7-5.4); SODIUM 140 mEq/L (136-147)
[2018-03-22 20:15] LABS: GLUCOSE 93 mg/dL (70-99)
[2018-03-22 20:19] LABS: CREATININE 0.9 mg/dL (0.6-1.3); GFR ESTIMATE (CALCULATED) > 59 mL/min/
[2018-03-22 20:20] LABS: UREA NITROGEN (BUN) 10 mg/dL (9-23)
[2018-03-22] MEDS ORDERED: AUGMENTIN875 MG PO (23:00)
[2018-03-22] MEDS ORDERED: LITE COAT ASPI325 M1 PO (23:00)
[2018-03-22] MEDS ORDERED: AVENTYL,PAMELOR10 MG PO (23:01)
[2018-03-22] MEDS ORDERED: LOPRESSOR25 MG PO (23:01)
[2018-03-22] MEDS ORDERED: OXYCODONE HCL10 MG PO (23:01)
[2018-03-22] MEDS ORDERED: NEURONTIN100 MG PO (23:02)
[2018-03-22] MEDS ORDERED: AMLODIPINE BESYL5 MG PO (23:02)
[2018-03-23 02:07] VITALS: BP 128/68
[2018-03-23 04:08] VITALS: BP 130/66
[2018-03-23 07:38] VITALS: BP 102/56
[2018-03-23 11:30] VITALS: BP 118/60
[2018-03-23 13:33] LABS: MAGNESIUM 1.8 mg/dl (1.3-2.7)
[2018-03-23 16:09] VITALS: BP 105/59
[2018-03-23 19:21] VITALS: BP 125/63
[2018-03-24 00:01] VITALS: BP 101/54
[2018-03-24 04:16] VITALS: BP 112/59
[2018-03-24 07:33] VITALS: BP 131/65
[2018-03-24 11:39] VITALS: BP 114/63
[2018-03-24 16:01] VITALS: BP 113/64
[2018-03-24 19:42] VITALS: BP 128/64
[2018-03-25] VITALS (7 sets, daily range): BP systolic 115–134; BP diastolic 59–76
[2018-03-25 06:33] LABS: BASOPHIL (%) 0.1 % (0-1); EOSINOPHIL (%) 0 % (0-5); HEMATOCRIT 29.9 % (36.0-46.0); HEMOGLOBIN 9.7 G/DL (11.9-15.5); IMMATURE GRANULOCYTE (%) 0.6 % (0.0-0.7); LYMPHOCYTE COUNT 0.7 K/uL (1.0-2.8); MCH 27.6 PG (29.0-34.0); MCHC 32.4 G/DL (30.0-36.0); MCV 85.2 FL (83-99); MONOCYTE (%) 1.8 % (3-12); MONOCYTE COUNT 0.2 K/uL (0-0.8); NEUTROPHIL (%) 91.5 % (45-76); NEUTROPHIL COUNT 10.9 K/uL (1.8-6.4); PLATELET COUNT 206 K/uL (156-360); RBC DIS.WIDTH-CV 16.3 % (11.8-14.6); RED BLOOD COUNT 3.51 M/uL (3.80-5.20); WHITE BLOOD COUNT 11.9 K/uL (4.1-10.2)
[2018-03-26 04:17] VITALS: BP 128/80
[2018-03-26 07:53] VITALS: BP 121/62
[2018-03-26] MEDS ORDERED: PREDNISONE20 MG PO (11:16)
[2018-03-26] MEDS ORDERED: LEVOFLOXACIN750 MG PO (11:16)
== END 2018-03-26 15:35 | disposition home health service (06) | DRG 190 ==
LOC: EME 18:55 → EDOF 23:49 → 2EAST 23:49 → ENRESERV 23:56 → 2EAST 03-23 01:48
PROVIDERS: Emergency Medicine; Hospitalist
DX: J44.1 Chronic obstructive pulmonary disease with (acute) exacerbation (principal); J96.21 Acute and chronic respiratory failure with hypoxia; J20.9 Acute bronchitis, unspecified; J44.0 Chronic obstructive pulmonary disease with (acute) lower respiratory infection; Z99.81 Dependence on supplemental oxygen; G89.29 Other chronic pain; I10 Essential (primary) hypertension; G62.9 Polyneuropathy, unspecified; E78.5 Hyperlipidemia, unspecified; F32.9 Major depressive disorder, single episode, unspecified; Z85.72 Personal history of non-Hodgkin lymphomas; Z87.891 Personal history of nicotine dependence; Z79.891 Long term (current) use of opiate analgesic; Z79.51 Long term (current) use of inhaled steroids
CPT/HCPCS: 71046; 80048; 83735; 84132; 85025; 93005; 94640; 94760; 94799; 99281; 99285; J1644; J2405; J2765; J2930; J7512; S0028